=== PATIENT | female | born 1965 | race Caucasian/White ===

== ENCOUNTER → 2016-08-24 | Outpatient (CLI) | payer OTHER ==
--- NOTE | 2016-08-24 17:07 | MA ---
Screening Digital Mammogram With iCAD Analysis Reason for Examination: Routine screening. Breast parenchymal density: Type C; Heterogeneously dense. . Technique: Four views of each breast are obtained including CC and oblique lateral William (implant di splaced) and non-William (implant not displaced) views. Images were reviewed using the iCAD computer a ided detection system. Comparison: August 2015, August 2014, July 2013, December 2012, January 2012, December 2010, December 2009, [place] 2008, November 2007.. Findings: Breast implants are in place bilaterally. iCAD is reviewed. No suspicious areas are identif ied. There has been no significant change in the appearance of either breast. Breast implants diminis h the sensitivity of mammography. Impression: Negative mammogram. BI-RADS 1. Recommendation: Routine screening is recommended in one year as long as physical examination is negat erin. [facility] will send a result letter to the patient. Negative mammography should not preclude additional workup of a clinically suspicious finding. The patient's information is entered into a reminder system with a target due date for her next mammo gram.
== END ==
LOC: BRMIMAGING 14:49
DX: Z12.31 Encounter for screening mammogram for malignant neoplasm of breast (principal)
CPT/HCPCS: G0202

== ENCOUNTER → 2017-08-25 | Outpatient (CLI) | payer OTHER | LOC: BRMIMAGING 13:54 | PROVIDERS: ATTEND Nurse Practitioner | DX: Z12.31 Encounter for screening mammogram for malignant neoplasm of breast (principal) ==

== ENCOUNTER → 2018-08-26 | Outpatient (CLI) | payer OTHER | LOC: BRMIMAGING 14:53 | PROVIDERS: ATTEND Nurse Practitioner | DX: Z12.31 Encounter for screening mammogram for malignant neoplasm of breast (principal); Z98.82 Breast implant status; Z80.3 Family history of malignant neoplasm of breast ==